=== PATIENT | female | born 1985 ===

== ENCOUNTER 2024-05-20 02:44 | Day surgery (SDC) | payer OTHER ==
[~2024-05-20 02:44] MED LIST: CYAN500; ERGO400 PO; GLUCOSAMINE1000 MG; HYDACE5 PO; HYDACE5325 PO; Multiple Vitam1 EACH PO; ORTHO-CYCLEN 21 EACH PO; PROM25 PO; RANI150 PO; VENL75; Vitamin C60 MG
[2024-05-20] MEDS ORDERED: NS IV SCH (06:00)
[2024-05-20] MEDS ORDERED: OCRELIZUMAB IV SCH (06:00)
[2024-05-20] MEDS ORDERED: MethylPREDNISolone Sod Succ 125 MG Vial IV SCH ×2 (07:05→08:30)
[2024-05-20] MEDS ORDERED: Acetaminophen 325 MG TABLET PO SCH (07:05)
[2024-05-20] MEDS ORDERED: DiphenhydrAMINE HCL 25 MG Cap PO SCH (07:10)
[2024-05-20 07:56] VITALS: BP 145/94
[2024-05-20] MEDS ORDERED: IRON BISGLYCINA28 MG PO (07:59)
[2024-05-20] MEDS ORDERED: OCRELIZUMAB IV (08:02)
[2024-05-20] MEDS ORDERED: DiphenhydrAMINE HCl 50 MG/ML 1ML Vial IV SCH (08:30)
[2024-05-20 09:06] VITALS: BP 140/79
[2024-05-20 09:35] VITALS: BP 140/82
[2024-05-20 10:04] VITALS: BP 135/84
--- NOTE | 2024-05-20 10:09 | NUR ---
PATIENT REPORTS HX OF INFUSION REACTIONS WITH PREVIOUS OCREV[facility] INFUSIONS. SHE SAYS DR [place] OFFICE TYPICALLY GIVES HER IV BENADRYL AT START OF INFUSION AND THEN ANOTHER DOSE DURING HER INFUSION BECAUSE SHE GETS "ITCHY AND HER THROAT GETS TIGHT AND SCRATCHY" APPROXIMATELY MID WAY THROUGH INFUSION WHEN THE PATIENT WAS RUNNING AT 120 ML/HR THE PATIENT REPORTED ITCHING STARTED AND WITHIN 5 MINUTES SHE REPORTED IT TO BE "SIGNIFICANTLY WORSENED AND SEVERE" ADDITIONAL BENADRIL DOSE GIVEN PER ORDERS. SOLUMEDROL ON STANDBY. PATIENT REPORTS RELIEF OF DISCOMFORT. VSS
[2024-05-20 10:38] VITALS: BP 132/69
[2024-05-20 11:00] VITALS: BP 137/78
--- NOTE | 2024-05-20 11:31 | NUR ---
PATIENT DC'D HOME AT END OF INFUSION. VSS. PATIENT REPORTS THAT HER SYMPTOMS HAVE REMAINED IMPROVED SINCE HER X1 DOSE IV BENADRYL. SHE FEELS SAFE TO DRIVE HOME AND REPORTS TO BE HEADING STRAIGHT HOME. PATIENT IS DC IN STABLE CONDITION WITH NO ACUTE SIGNS OF DISTRESS
== END 2024-05-20 11:02 | disposition home or self-care (01) ==
LOC: ATC 02:44
DX: G35 Multiple sclerosis (principal); Z79.899 Other long term (current) drug therapy; Z90.49 Acquired absence of other specified parts of digestive tract
CPT/HCPCS: 96365; 96366; 96375; A9270; J1200; J2350; J2919; J7050

== ENCOUNTER 2024-11-18 03:07 | Day surgery (SDC) | payer OTHER ==
[~2024-11-18 03:07] MED LIST changes: +IRON BISGLYCINA28 MG PO; +OCRELIZUMAB IV
[2024-11-18] MEDS ORDERED: OCRELIZUMAB 600 MG in NS 500 ML IV SCH (06:00)
[2024-11-18] MEDS ORDERED: Acetaminophen 325 MG TABLET PO SCH (06:40)
[2024-11-18] MEDS ORDERED: DiphenhydrAMINE HCl 50 MG/ML 1ML Vial IV SCH (06:40)
[2024-11-18] MEDS ORDERED: MethylPREDNISolone Sod Succ 125 MG Vial IV SCH (06:40)
[2024-11-18] MEDS ORDERED: DiphenhydrAMINE HCL 25 MG Cap PO SCH (06:40)
[2024-11-18 07:20] VITALS: BP 132/72
[2024-11-18 08:26] VITALS: BP 128/74
[2024-11-18 08:51] VITALS: BP 131/76
[2024-11-18 09:27] VITALS: BP 128/70
[2024-11-18 09:55] VITALS: BP 126/71
== END 2024-11-18 11:45 | disposition home or self-care (01) ==
LOC: ATC 03:07
DX: G35 Multiple sclerosis (principal)
CPT/HCPCS: 96365; 96366; 96375; A9270; J1200; J2350; J2919; J7040

== ENCOUNTER → 2025-06-07 | Outpatient (CLI) | payer OTHER | LOC: LAB 13:35 | DX: Z12.4 Encounter for screening for malignant neoplasm of cervix (principal) ==

== ENCOUNTER 2025-07-05 00:30 | Day surgery (SDC) | payer OTHER ==
[2025-07-05] MEDS ORDERED: OCRELIZUMAB 600 MG in NS 500 ML IV SCH (06:00)
[2025-07-05 07:30] VITALS: BP 144/65
[2025-07-05] MEDS ORDERED: DiphenhydrAMINE HCl 50 MG/ML 1ML Vial IV SCH (07:55)
[2025-07-05 08:37] VITALS: BP 120/65
[2025-07-05 09:10] VITALS: BP 118/72
[2025-07-05 10:15] VITALS: BP 113/63
[2025-07-05 12:03] VITALS: BP 130/72
== END 2025-07-05 12:04 | disposition home or self-care (01) ==
LOC: ATC 00:30
DX: G35.A Relapsing-remitting multiple sclerosis (principal)
CPT/HCPCS: 96365; 96366; 96375; A9270; J1200; J2919